=== PATIENT | female | born 1980 | race Native Hawaiian/Other Pacific Islander ===

== ENCOUNTER 2017-06-16 08:04 | Emergency (ER) | payer OTHER ==
[~2017-06-16] VITALS: Ht 160 cm; Wt 81.6 kg
[2017-06-16] MEDS ORDERED: STELARA130 MG/26 IV (08:15)
[2017-06-16] MEDS ORDERED: GABA300C2 PO (08:15)
== END 2017-06-16 08:46 | disposition home or self-care (01) ==
LOC: ED 08:04
DX: M25.462 Effusion, left knee (principal); M17.12 Unilateral primary osteoarthritis, left knee
CPT/HCPCS: 99282